=== PATIENT | female | born 1940 | race Caucasian/White ===

== ENCOUNTER 2021-03-04 07:21 | Day surgery (SDC) | payer OTHER ==
[2021-03-04] MEDS ORDERED: FENTANYL CITR 100 MCG/2 ML ONE (07:39)
[2021-03-04] MEDS ORDERED: propofoL 200 MG/20 ML VIAL IV ONE (07:39)
[2021-03-04] MEDS ORDERED: LIDOCAINE 1% MPF 5 ML VIAL ONE (07:39)
[2021-03-04] MEDS ORDERED: NA CHLORIDE 0.9% 1,000 ML ONE (07:51)
[2021-03-04] MEDS ORDERED: LIDOCAINE 1% W/EPI 1:100,000 MDV 20 ML VIAL ONE (07:53)
[2021-03-04] MEDS ORDERED: SILVER NITRATE 1 APPL TOP ONE (07:53)
[2021-03-04] MEDS ORDERED: CEFAZOLIN SODIUM 1 GM/VIAL ONE (08:42)
[2021-03-04] MEDS ORDERED: NS 0.9% VIAL 10 ML ONE (08:43)
[2021-03-04] MEDS ORDERED: KETOROLAC 30 MG/ML INJ ONE (08:45)
[2021-03-04] MEDS ORDERED: METRONIDAZOLE 500mg IVPB 500 MG/100 ML BAG IV ONE (08:46)
[2021-03-04] MEDS ORDERED: ACETAMINOPHEN 500 MG TAB PO ONE (08:50)
--- NOTE | 2021-03-04 08:53 | P.BOP ---
Preoperative diagnosis: PMB, [id number] prolapse Postoperative diagnosis: same and cervical stenosis, pyometra Primary procedure: Hysteroscopy d/c, drainage of pyometra Cabinetmaker Apprentice: NONE,NONE Estimated blood loss: min Specimen: EMC Findings: cervical elongation, tumor tissue in endometrial canal,pus in cavity Anesthesia: MAC Complications: None Transferred to: Recovery Room Condition: Good
[2021-03-04] MEDS ORDERED: HOME MED 1 EA UNK (Calcium Carbonate/Vitamin D3 [Caltrate 600 Plus D3 Tablet] Tablet) PO SCH (09:00)
[2021-03-04] MEDS ORDERED: SITAGLIPTIN PHOS 100 MG TAB PO SCH (09:00)
[2021-03-04] MEDS ORDERED: HOME MED 1 EA UNK (Cholecalciferol (Vitamin D3) [Vitamin D3] 1,000 UNIT Capsule) PO SCH (09:00)
[2021-03-04] MEDS ORDERED: AMLODIPINE 5 MG TAB PO SCH (09:00)
[2021-03-04] MEDS ORDERED: C E ZINC COPPER PO SCH (09:00)
[2021-03-04] MEDS ORDERED: HOME MED 1 EA UNK (Pravastatin Sodium [Pravastatin Sodium] 80 MG Tablet) PO SCH (09:00)
[2021-03-04] MEDS ORDERED: ALENDRONATE SODIUM 35 MG PO SCH (09:00)
[2021-03-04] MEDS ORDERED: LUT PO SCH (09:00)
[2021-03-04] MEDS ORDERED: HOME MED 1 EA UNK (Glimepiride [Glimepiride] 4 MG Tablet) PO SCH (09:00)
[2021-03-04] MEDS ORDERED: OMEGA3S PO SCH (09:00)
[2021-03-04] MEDS ORDERED: PIOGLITAZONE 15 MG TAB PO SCH (09:00)
[2021-03-04] MEDS ORDERED: [UNRECOGNIZED DRUG - OTHER] PO SCH (09:00)
[2021-03-04 10:55] VITALS: BP 128/64; TEMP 97.2; O2SAT 98
--- NOTE | 2021-03-04 19:20 | OP ---
Date of Procedure: 03/04/2021 Surgeon: Yudith Lind MD Employee Relations Consultant: No graduate research assistant. Preoperative Diagnoses: Postmenopausal bleeding, stage III uterine prolapse. Postoperative Diagnoses: Postmenopausal bleeding, stage III uterine prolapse, cervical stenosis, and pyometra. Procedures Performed: Hysteroscopy, dilation and curettage, and drainage of pyometra. Anesthesia: MAC. Specimens: Endometrial curettings. Complications: No complications or drains. Condition: The patient's condition is stable. Indications: The patient is an 80-year-old female, who presented with vaginal bulge symptoms for ove r a year. Recently, noted a bloody discharge when she wipes sometimes, so she was evaluated in the o ffice, found to have a significant uterovaginal prolapse that definitely needs repair. Transvaginal ultrasound was ordered to evaluate her bleeding. Endometrial thickening was found, sign ificantly 2.5 cm endometrial stripe was measured. The patient's external os was completely stenotic, so it was difficult to proceed with further evaluation in the office. She was consented for hystero scopy, dilation and curettage, exam under anesthesia to rule out atypia or malignancy in the uterus s o that this can be addressed at the same time of her prolapse repair. Her was present at her appointment and consented. Description Of Procedure: After she was brought to the OR, she was taken back to the operating room and placed in supine fashion on the operating table. General anesthesia MAC was given and placed in a dorsal lithotomy position. Vulva, vagina, and perineum were prepped and draped in a sterile fashio n. The anterior lip of the uterus was held with an Allis clamp. The stenotic os was gently opened w ith the tip of a hemostat. Then, cervical canal was entered using a diagnostic SlimLine hysteroscope and uterine cavity was entered. Clearly, pus-like material was seen as soon as the os was opened an d more was seen in the cavity. Tumor-like tissue was also visualized. The cavity was visualized wit h a low-pressure on the infusion of the saline from a hysteroscope. The scope was pulled out and a t cee was given to drain the purulent discharge out. Then endometrial curettage was performed with the help of a 0 endometrial curette carefully. The specimen was retrieved and handed out for permanent pathology. The instruments were removed. Instrument, needle, and sponge counts were done and correc t at the end of the case. The patient tolerated the procedure well. She was given a gram of Ancef a nd 500 of Flagyl. She will be sent home on Augmentin 500/125 b.i.d. for 10 days. This is to treat h er pyometra. After following up the results of the pathology specimen, if this is malignant, she finn l be referred to a gynecological oncologist, who could potentially perform the prolapse repair in [facility] with a buying intern. DINORAH/RANDALL Voice ID: [id number] Report ID: [id number]
[2021-03-05] MEDS ORDERED: LEVOTHYROXINE SOD 0.112 MG TAB PO SCH (06:00)
== END 2021-03-04 09:48 | disposition home or self-care (01) ==
LOC: OR 07:21
PROVIDERS: ATTEND Obstetrics & Gynecology
PROC: 0UJD8ZZ Inspection of Uterus and Cervix, Via Natural or Artificial Opening Endoscopic (ICD-10-PCS; 2021-03-04)
PROC: 0UDB7ZX Extraction of Endometrium, Via Natural or Artificial Opening, Diagnostic (ICD-10-PCS; principal; 2021-03-04 08:30)
DX: N95.0 Postmenopausal bleeding (principal); N81.2 Incomplete uterovaginal prolapse; N95.2 Postmenopausal atrophic vaginitis; N39.0 Urinary tract infection, site not specified; N88.2 Stricture and stenosis of cervix uteri; Z20.822 Contact with and (suspected) exposure to COVID-19
CPT/HCPCS: 82947; 88305; 58558; U0003; J2704; J3010; J7030; J0690